=== PATIENT | male | born 1965 | race Caucasian/White ===

== ENCOUNTER 2021-05-16 22:14 | Emergency (ER) | payer OTHER ==
[2021-05-16] MEDS ORDERED: oxyCODONE 5 MG TABLET PO STA (22:53)
[2021-05-16] MEDS ORDERED: TETANUS/DIPHTHERIA/PERTUSSIS 0.5 ML SYRINGE IM ONE (22:58)
[2021-05-16] MEDS ORDERED: BACITRACIN ZINC OINT 1 PACKET TOP STA (23:18)
[2021-05-16] MEDS ORDERED: BUFFERED LIDOCAINE 10 ML SYRINGE SUBQ STA (23:18)
[2021-05-16] MEDS ORDERED: OXYMETAZOLINE HCL 100 SPRAYS BOTTLE NAS STA (23:18)
[2021-05-17 02:20] VITALS: BP 143/93
[2021-05-17] MEDS ORDERED: oxyCODONE/ACET 5/325 Prepack 4 PO STA (02:25)
--- NOTE | 2021-05-17 02:25 | ED Physician Documentation ---
History of Present Illness - Stated complaint Stated Complaint: GLF/FACE & TOOTH PX - Chief complaint Chief Complaint: Trauma Hd/Nk - History obtained from History obtained from: Patient - Additonal information Additional information: 56-year-old man presents with facial pain after tripping and falling onto his right knee then left hand and face today. Patient has a laceration to the bridge of his nose and had mild epistaxis, now resolved. He also lost his right upper tooth. Denies loss of consciousness or other injuries. Review of Systems Ten Systems: 10 systems reviewed and negative Constitutional: denies: Fever, Chills Nose: reports: Epistaxis Skin: reports: Laceration (s) PD PAST MEDICAL HISTORY - Present Medications Home Medications: Ambulatory Orders Medication Instructions Recorded Confirmed Oxycodone HCl/Acetaminophen 1 each PO Q4H PRN #10 tablet 05/17/21 [Percocet 10-325 mg Tablet] - Allergies Allergies/Adverse Reactions: Allergies Allergy/AdvReac Type Severity Reaction Status Date / Time No Known Drug Allergies Allergy Verified 05/16/21 22:38 PD ED PE NORMAL - Vitals Vital signs reviewed: Yes - General General: Alert and oriented X 3, No acute distress, Well developed/nourished - HEENT HEENT: Atraumatic, PERRL, EOMI, Other (Tooth 7 with significant avulsion and exposed pulp. BL naris dried blood. no NSH. moderate swelling to nasal bridge with overlying 1cm lac that is superficial and well approximated) - Neck Neck: No bony TTP - Cardiac Cardiac: RRR - Respiratory Respiratory: No respiratory distress, Clear bilaterally - Abdomen Abdomen: Non tender, Non distended - Back Back: No spinal TTP - Derm Derm: Normal color, Warm and dry - Extremities Extremities: No deformity, Normal ROM s pain - Neuro Neuro: Alert and oriented X 3 - Psych Psych: Normal mood, Normal affect Results - Vitals Vitals: Vital Signs - 24 hr 05/16/21 05/17/21 22:30 02:19 Temperature 36.8 C 36.8 C Heart Rate 88 73 Respiratory 16 16 Rate Blood Pressure 148/94 H 143/93 H O2 Saturation 94 97 Oxygen O2 Source Room air Procedures - General procedure General procedure: Avulsed tooth 7 with root visible - irrigated with normal saline and applied dental cement. ebl 0. patient tolerated well. referred to dental - Laceration (location) Nose Length in cm: 1 Wound type: Curved, Clean. No: Exposure of bone, Exposure of cartilage Neurovascular status: Sensory intact, Motor intact Wound preparation: Irrigated copiously NS Skin layer closure: Dermabond Other: Patient tolerated well, No complications, Tetanus booster given - Epistaxis Site: Right, Anterior Preparation: Afrin Treatment: None needed - resolved Other: Observed - no bleeding, Pt tolerated well, Referred to ENT PD MEDICAL DECISION MAKING - ED course ED course: 56-year-old man presented with facial injury status post mechanical fall from standing. Laceration repaired with Dermabond, cement placed already avulsed tooth, advised to follow-up with ENT in regards to nasal bone fractures and dental for the tooth. Return precautions given. Departure - Departure Disposition: 01 Home, Self Care Clinical Impression: Avulsed tooth, Epistaxis, Nasal bone fracture, Fall from standing Condition: Good Instructions: ED Fx Tooth, ED Nosebleed, ED Fx Nose W Lac Skin Glue Prescriptions: Oxycodone HCl/Acetaminophen [Percocet 10-325 mg Tablet] 1 each PO Q4H PRN #10 tablet PRN Reason: Pain Comments: You were seen in the emergency department for evaluation after a fall. You need to have your tooth pulled and you need to see a an ear nose and throat doctor within the week. Return to the emergency department if you have any new or worsening symptoms or other concerns. Discharge Date/Time: 05/17/21 02:57
--- NOTE | 2021-05-17 10:01 | CT Report ---
PROCEDURE: MAXILLOFACIAL WO INDICATIONS: facial trauma from a fall TECHNIQUE: Noncontrast 1.5 mm thick axial images acquired from the mandible through the frontal sinuses, with co ros and sagittal reformatting. For radiation dose reduction, the following was used: automated ex posure control, adjustment of mA and/or kV according to patient size. COMPARISON: Correlation is made with a coming head CT, 05/16/2021. FINDINGS: Image quality: Excellent. Bones and teeth: Comminuted, acute-appearing nasal bone fractures can be seen, with slight leftward deviation. The anterior nasal septum also appears fractured. Orbital xavier are intact. Sinus xavier show no fracture or deformity. Visualized portions of the man dible demonstrate no fractures or subluxation. Zygomatic arches are intact. Pterygoid plates are in tact. Visualized portions of the skull base and auditory canals are intact. Degenerative changes ca n be seen of the visualized cervical spine. Sinuses: Air blunt levels can be seen within the maxillary sinuses. There is mild mucosal thickening within the ethmoid air cells. Minimal to mild mucosal thickening is seen elsewhere. Soft tissues: Soft tissue swelling is seen involving the nose, with overlying bandaging material. No enlarged lymph nodes. No soft tissue lacerations or debris. Vascular: Visualized vascular structures appear normal in the absence of contrast. Bony vascular fo ramina and canals are intact. IMPRESSION: Comminuted nasal bone fractures, which are slightly deviated to the left. Anterior nasal septal fractures. There are air-fluid levels seen within the maxillary sinuses. Note: No significant discrepancy from the preliminary report. Reviewed by: Reinier Macias MD on 05/17/2021 8:59 AM MELINDA Approved by: Reinier Macias MD on 05/17/2021 8:59 AM MELINDA Station ID: [id number]
--- NOTE | 2021-05-17 10:03 | CT Report ---
PROCEDURE: HEAD WO INDICATIONS: fall from standing +HT no LOC TECHNIQUE: Noncontrast 4.5 mm thick angled axial sections acquired from the foramen magnum to the vertex. For r adiation dose reduction, the following was used: automated exposure control, adjustment of mA and/or kV according to patient size. COMPARISON: Correlation is made with the maxillofacial CT, 05/16/2021. FINDINGS: Image quality: Excellent. CSF spaces: Basal cisterns are patent. No extra-axial fluid collections. Ventricles are normal in size and shape. Brain: No midline shift. No intracranial masses or hemorrhage. Puente-white matter interface is norm al. Skull and face: Comminuted nasal bone fractures and nasal septal fractures are seen, which are corwin r demonstrated on the accompanying maxillofacial CT. Calvarium and visualized facial bones are intact , without suspicious lesions. Sinuses: Maxillary sinuses are blunted levels are seen, with mild mucosal thickening within ethmoid a ir cells. No significant abnormal fluid can be seen within the mastoid air cells or within the middle ear cavities. IMPRESSION: No intracranial hemorrhage is seen. No significant intracranial abnormality is seen. Comminuted nasal bone fractures and nasal septal fractures, with associated air blood levels within t he maxillary sinuses. Note: No significant discrepancy from the preliminary report. Reviewed by: eRinier Macias MD on 05/17/2021 9:01 AM MELINDA Approved by: Reinier Macias MD on 05/17/2021 9:01 AM MELINDA Station ID: [id number]
== END 2021-05-17 02:57 | disposition home or self-care (01) ==
LOC: ED 22:14
DX: S03.2XXA Dislocation of tooth, initial encounter (principal); S02.2XXA Fracture of nasal bones, initial encounter for closed fracture; W01.0XXA Fall on same level from slipping, tripping and stumbling without subsequent striking against object, initial encounter; Z23 Encounter for immunization; R04.0 Epistaxis
CPT/HCPCS: 12011; 30901; 70450; 70486; 90471; 90715; 99283; 99284; A9270